=== PATIENT | female | born 1990 | race Caucasian/White ===

== ENCOUNTER 2019-05-14 16:12 | Emergency (ER) | payer OTHER ==
[2019-05-14 16:24] VITALS: BP 138/67
--- NOTE | 2019-05-14 17:23 | ED Physician Documentation ---
History of Present Illness - Stated complaint Stated Complaint: R FOOT PAIN - Chief complaint Chief Complaint: Ext Problem - History obtained from History obtained from: Patient - History of Present Illness Timing: How many days ago (3) - Additonal information Additional information: 28-year-old female is noticed some redness to the dorsum of her right foot about 3 days ago has progressively gotten worse and she is now become concerned as it feels a bit swollen and is tender. She notes blanching to the erythema and she is wearing some tight boots for work. She is supposed to go to work this evening. She has had some problems with these boots being too tight. She has not had fever. Review of Systems Constitutional: denies: Fever Eyes: denies: Decreased vision Ears: denies: Ear pain Nose: denies: Congestion Throat: denies: Sore throat Cardiac: denies: Chest pain / pressure, Palpitations Respiratory: denies: Dyspnea, Cough GI: denies: Nausea, Vomiting Skin: reports: Other (redness and tenderness to the right foot). denies: Rash Musculoskeletal: reports: Extremity pain, Extremity swelling. denies: Neck pain, Back pain Neurologic: denies: Generalized weakness, Focal weakness, Numbness PD PAST MEDICAL HISTORY - Present Medications Home Medications: Ambulatory Orders Medication Instructions Recorded Confirmed Amox/Clav 875/125 [Augmentin] 1 each PO Q12H #14 tablet 05/14/19 - Allergies Allergies/Adverse Reactions: Allergies Allergy/AdvReac Type Severity Reaction Status Date / Time No Known Drug Allergies Allergy Verified 05/14/19 16:24 PD ED PE NORMAL - Vitals Vital signs reviewed: Yes (normal ) - General General: Alert and oriented X 3, No acute distress, Well developed/nourished - HEENT HEENT: Atraumatic, PERRL, EOMI - Respiratory Respiratory: No respiratory distress - Derm Derm: Normal color, Warm and dry, No rash - Extremities Extremities: No deformity, Other (over the dorsum of the rigth foot laterally there is some swelling, erythema and tenderness and there appears to be a blister to the lateral aspect of the right foot distally over the MTP joint. The erythema extends from the toes to the mid foot and there is no lymphangitic streaking. 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 I have asked her to call off work tonight and we will start some antibiotic she is to discontinue the use of the boot she has and the margins of the cellulitis are marked with a surgical marker. Departure - Departure Disposition: Home, Self Care Clinical Impression: Cellulitis Qualifiers: Site of cellulitis: extremity Site of cellulitis of extremity: lower extremity Laterality: right Qualified Code(s): L03.115 - Cellulitis of right lower limb Condition: Stable Instructions: ED Infec Skin Cellulitis Follow-Up: Lise Alaniz MD [Primary Care Provider] - Prescriptions: Amox/Clav 875/125 [Augmentin] 1 each PO Q12H #14 tablet Comments: Today it appears you have cellulitis to the top of your foot related to tight fitting boots. Discontinue the use of the tight fitting boots, reduce your level of activity, use a warm compress 2-3 times per day take the antibiotic as prescribed and if you have increased redness beyond the margins drawn return to the emergency department for further evaluation. Forms: Activity restrictions
== END 2019-05-14 17:31 | disposition home or self-care (01) ==
LOC: ED 16:12
DX: L03.115 Cellulitis of right lower limb (principal)
CPT/HCPCS: 99283

== ENCOUNTER 2019-05-21 05:40 | Day surgery (SDC) | payer OTHER ==
[2019-05-21] MEDS ORDERED: LIDOCAINE-MPF 2% 5 ML VIAL IM ONE (05:41)
[2019-05-21] MEDS ORDERED: LACTATED RINGERS 1,000 ML IV ONE ×2 (06:46→09:23)
--- NOTE | 2019-05-21 07:00 | ANESTHESIA ---
Pre-Anesthesia VS, & Labs - Diagnosis Undesired fertility - Procedure Lap salpingectomy Vital Signs: Temp Pulse Resp BP Pulse Ox 36.5 C 89 16 117/68 98 05/21/19 06:23 05/21/19 06:23 05/21/19 06:23 05/21/19 06:23 05/21/19 06:23 Height 5 ft 1 in Weight (kg) 59.4 kg Body Mass Index 24.5 - Is Patient ?: No Home Medications and Allergies Allergies/Adverse Reactions: Allergies Allergy/AdvReac Type Severity Reaction Status Date / Time morphine AdvReac Intermediate Nausea Verified 05/15/19 15:18 acetaminophen [From Vicodin] AdvReac Nausea Verified 05/15/19 15:18 hydrocodone [From Vicodin] AdvReac Nausea Verified 05/15/19 15:18 Anes History & Medical History - Anesthetic History Anesthesia Complications: reports: No previous complications Family history of Anesthesia Complications: Denies Family history of Malignant Hyperthermia: Denies - Medical History Cardiovascular: reports: None Pulmonary: reports: None Gastrointestinal: reports: None Urinary: reports: None Musculoskeletal: reports: None Endocrine/Autoimmune: reports: None Skin: reports: Other Smoking Status: Never smoker - Surgical History General: Appendectomy Eyes Ears Nose Throat (EENT): Myringotomy (tubes) Gynecologic: LEEP (Cervical surgery) Plan Anesthesia Type: General Consent for Procedure(s) Verified and Reviewed: Yes Code Status: Attempt Resuscitation ASA classification: 2-Mild systemic disease Is this case an emergency?: No
[2019-05-21 07:03] LABS: HCG UR QUAL NEGATIVE
--- NOTE | 2019-05-21 07:03 | ANESTHESIA ---
Pre-Anesthesia VS, & Labs - Diagnosis undesired fertility - Procedure laparoscopic salpingectomy Vital Signs: Temp Pulse Resp BP Pulse Ox 36.5 C 89 16 117/68 98 05/21/19 06:23 05/21/19 06:23 05/21/19 06:23 05/21/19 06:23 05/21/19 06:23 Height 5 ft 1 in Weight (kg) 59.4 kg Body Mass Index 24.5 - NPO >8 hours - Is Patient ?: No - Lab Results Lab results reviewed: Yes Home Medications and Allergies Allergies/Adverse Reactions: Allergies Allergy/AdvReac Type Severity Reaction Status Date / Time morphine AdvReac Intermediate Nausea Verified 05/15/19 15:18 acetaminophen [From Vicodin] AdvReac Nausea Verified 05/15/19 15:18 hydrocodone [From Vicodin] AdvReac Nausea Verified 05/15/19 15:18 Anes History & Medical History - Anesthetic History Anesthesia Complications: reports: No previous complications Family history of Anesthesia Complications: Denies Family history of Malignant Hyperthermia: Denies - Medical History Cardiovascular: reports: None Pulmonary: reports: None Gastrointestinal: reports: None Urinary: reports: None Musculoskeletal: reports: None Endocrine/Autoimmune: reports: None Skin: reports: Other Smoking Status: Never smoker - Surgical History General: Appendectomy Eyes Ears Nose Throat (EENT): Myringotomy (tubes) Gynecologic: LEEP (Cervical surgery) Exam General: Alert (cap), Oriented x3, Cooperative, No acute distress Dental: Other (cap) Mouth Openin Fingerbreadth Neck Mobility: Normal Mallampati classification: II Thyromental Distance: 4-6 cm Respiratory: Lungs clear, Normal breath sounds, No respiratory distress, No accessory muscle use Cardiovascular: Regular rate, Normal S1, Normal S2, No murmurs Plan Anesthesia Type: General Consent for Procedure(s) Verified and Reviewed: No Code Status: Attempt Resuscitation ASA classification: 1-Healthy patient Is this case an emergency?: No
[2019-05-21] MEDS ORDERED: LIDOCAINE MPF 1%-EPI 1:200000 30 ML VIAL ONE (07:19)
[2019-05-21] MEDS ORDERED: BUPIVACAINE 0.5% PF 10 ML VIAL ONE (07:19)
[2019-05-21] MEDS ORDERED: ONDANSETRON 4 MG/2 ML VIAL IVP ONE (08:15)
[2019-05-21] MEDS ORDERED: PROPOFOL 200 MG/20 ML VIAL IVP ONE (08:15)
[2019-05-21] MEDS ORDERED: fentaNYL 100 MCG/2 ML VIAL IVP ONE (08:15)
[2019-05-21] MEDS ORDERED: KETOROLAC 30 MG/ML VIAL IVP ONE (08:15)
[2019-05-21] MEDS ORDERED: ROCURONIUM 50 MG/5 ML VIAL IVP ONE (08:15)
[2019-05-21] MEDS ORDERED: LIDOCAINE 1%-EPI 1:100000 30 ML MDV SUBQ ONE ×2 (08:18)
[2019-05-21] MEDS ORDERED: SILVER NITRATE APPLICATOR TOP ONE ×2 (08:57→08:58)
[2019-05-21] MEDS ORDERED: BACITRACIN OINT TOP ONE (08:57)
[2019-05-21] MEDS ORDERED: BACITRACIN ZINC OINT 15 GM TOP ONE (08:59)
--- NOTE | 2019-05-21 09:14 | OPERATIVE REPORT ---
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 The uterus was of normal size, shape and consistency and anteverted. The adnexa were unremarkable. Operative findings: The uterus was of normal size and shape and anteverted. The tubes and ovaries were normal. There were powder burn lesions of the posterior cul-de-sac. No lesions were seen in either ovarian fossa, or anterior cul-de-sac. The liver edge and gallbladder appeared normal. The appendix was surgically absent. - Other Other Information/Narrative: Procedure: The patient was taken to the operating room, where general endotracheal anesthesia was administered without difficulty. She was then positioned in the low dorsal lithotomy position with her lower extremities in [place] stirrups. Vagina, perineum, and abdomen were then prepped and draped in a sterile fashion, and an in-an-out catheterization was performed. Procedure Time-Out was then performed. A sterile bivalve speculum was then inserted into the vagina. A Hulka tenaculum was placed at the anterior lip of the cervix. The speculum was then removed from the vagina. Attention was then turned to the laparoscopy. 0.5% Marcaine was injected infraumbilically, then a 7-mm horizontal skin incision made. A Verress needle was then inserted through the anterior layers of the abdominal wall with saline drop test suggesting intraperitoneal placement. Carbon dioxide gas insufflation was then performed with appropriate opening pressures noted. Once 2 L of gas was instilled, a 0-degree, 5 mm laparoscope was inserted into a 5 mm trocar and passed through the anterior layers of the abdominal wall using Optiview te chnique. The abdomen was visualized, then 2 additional ports placed at the right and left lower quadrants, first instilling local anesthetic, then placing 5 mm ports. The patient was placed into Trendelenberg and bowel swept out of the cul-de-sac. The right, distal fallopian tube was then grasped and pulled anteriorly and superiorly. The tubo-ovarian ligament was then crossclamped, cauterized, and cut using the PlasmaKinetic, then the mesosalpinx was crossclamped, cauterized, and cut, completely the right fallopian tube from the uterus at the cornual region. The right fallopian tube was then removed from the abdomen. The left distal fallopian tube was then grasped and pulled anteriorly and superiorly. The tubo-ovarian pedicle was then crossclamped, cauterized, and cut, the distal left fallopian tube from the left ovary. The mesosalpinx was then serially cauterized and cut until the cornual region was reached, then the fallopian tube was crossclamped, cauterized and cut. The surgical sites appeared hemostatic. The left fallopian tube was removed from the abdomen. Endometriotic implants in the posterior cul de sac were cauterized using [place] forceps. At this point the laparoscopy was deemed complete, and all trochars were removed from the abdomen. The carbon dioxide gas was then allowed to escape. The incisions were then closed with 4-0 Monocryl in a subcuticular fashion followed by Dermabond skin adhesive. The tenaculum was then removed from the posterior lip of the cervix. The sterile bivalve speculum was then reinserted to ensure that the tenaculum sites were hemostatic. No bleeding was noted, and the speculum was then removed. Attention was returned to the posterior fourchette which was injected with 1cc of 1% lidocaine with epinephrine. The left buttock lesion was also injected with 1cc of 1% lidocaine with epinephrine. Both lesions were sharply excised and sent for pathologic examination. Hemostasis was achieved with AgNO3. Both lesions were dabbed with triple antibiotic ointment. At this point the procedure was deemed complete. The patient was then replaced supine, awakened, extubated, and transferred to the PACU in stable condition.
[2019-05-21] MEDS ORDERED: ONDANSETRON 4 MG/2 ML VIAL ONE (10:06)
[2019-05-21] MEDS ORDERED: oxyCODONE 5 MG TABLET ONE (10:50)
[2019-05-21 10:52] VITALS: BP 104/62
== END 2019-05-21 05:41 | disposition home or self-care (01) ==
LOC: SDS 05:40
PROVIDERS: ATTEND Obstetrics & Gynecology
PROC: 0HBAXZZ Excision of Inguinal Skin, External Approach (ICD-10-PCS; 2019-05-21)
PROC: 0HB8XZZ Excision of Buttock Skin, External Approach (ICD-10-PCS; 2019-05-21)
PROC: 0UT74ZZ Resection of Bilateral Fallopian Tubes, Percutaneous Endoscopic Approach (ICD-10-PCS; principal; 2019-05-21 07:30)
PROC: 0U5F4ZZ Destruction of Cul-de-sac, Percutaneous Endoscopic Approach (ICD-10-PCS; 2019-05-21 07:30)
DX: Z30.2 Encounter for sterilization (principal); A63.0 Anogenital (venereal) warts; N80.3 Endometriosis of pelvic peritoneum; F17.210 Nicotine dependence, cigarettes, uncomplicated
CPT/HCPCS: 11400; 11420; 58661; 58662; 81025; A9270; J7120

== ENCOUNTER 2022-03-05 14:58 | Emergency (ER) | payer OTHER ==
[2022-03-05 15:33] LABS: BASOPHILS % (AUTO) 0.5 %; EOSINOPHILS # (AUTO) 0.1 10^3/uL (0.0-0.7); EOSINOPHILS % (AUTO) 0.9 %; HCT - HEMATOCRIT 40.4 % (37.0-47.0); HGB - HEMOGLOBIN 13.8 g/dL (12.0-16.0); LYMPHOCYTES # (AUTO) 1.8 10^3/uL (1.5-3.5); MEAN CORPUSCULAR HEMOGLOBIN 31.9 pg (27.0-31.0); MEAN CORPUSCULAR HGB CONC 34.2 g/dL (32.0-36.0); MEAN CORPUSCULAR VOLUME 93.5 fL (81.0-99.0); MEAN PLATELET VOLUME 9.4 fL (7.9-10.8); MONOCYTES # (AUTO) 0.4 10^3/uL (0.0-1.0); MONOCYTES % (AUTO) 5.1 %; NEUTROPHILS # (AUTO) 5.3 10^3/uL (1.5-6.6); NEUTROPHILS % (AUTO) 69.2 %; PLT - PLATELET COUNT 249 10^3/uL (130-450); RED BLOOD COUNT 4.32 10^6/uL (4.20-5.40); RED CELL DISTRIBUTION WIDTH 11.7 % (12.0-15.0); WHITE BLOOD COUNT 7.6 x10^3/uL (4.8-10.8)
[2022-03-05 15:41] LABS: BILIRUBIN,URINE NEGATIVE (NEGATIVE); GLUCOSE, URINE (UA) NEGATIVE (NEGATIVE); KETONES,URINE (UA) NEGATIVE (NEGATIVE); LEUKOCYTE ESTERASE, URINE NEGATIVE (NEGATIVE); NITRITE,URINE NEGATIVE (NEGATIVE); OCCULT BLOOD,URINE NEGATIVE (NEGATIVE); PH,URINE 6.5 PH (5.0-7.5); PROTEIN,URINE NEGATIVE (NEGATIVE); UROBILINOGEN,URINE 0.2 (NORMAL) E.U./dL (NORMAL)
--- NOTE | 2022-03-05 15:42 | ED Physician Documentation ---
History of Present Illness - Stated complaint Stated Complaint: ABD PX, DIZZINESS,NAUSEA - Chief complaint Chief Complaint: Abd Pain - Additonal information Additional information: 31-year-old female presents emergency department for evaluation of what she describes as sharp sudden tearing abdominal pain. She did have some associated nausea. She thought that perhaps she may be constipated or needed to pass gas but having a bowel movement and flatulence did not improve her symptoms. She denies a history of constipation. The symptoms have improved though not fully abated. 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 Denies fevers. States that she did have some difficulty with urinating though no dennis dysuria or hematuria. Review of Systems Constitutional: denies: Fever, Chills Nose: reports: Reviewed and negative Throat: reports: Reviewed and negative Cardiac: reports: Reviewed and negative Respiratory: reports: Reviewed and negative GI: reports: Abdominal Pain, Nausea. denies: Vomiting, Constipation, Diarrhea, Hematemesis, Bloody / black stool : reports: Unable to Void Skin: reports: Reviewed and negative Musculoskeletal: reports: Reviewed and negative PD PAST MEDICAL HISTORY - Past Medical History Past Medical History: Yes Cardiovascular: None Respiratory: None Endocrine/Autoimmune: None GI: None : None HEENT: Other Psych: None Musculoskeletal: None Derm: Other - Past Surgical History General: Appendectomy /CHAPLAINCY: LEEP (Cervical surgery) HEENT: Myringotomy (tubes) - Present Medications Home Medications: Ambulatory Orders Medication Instructions Recorded Confirmed Amox/Clav 875/125 [Augmentin] 1 each PO Q12H #14 tablet 05/14/19 05/21/19 - Allergies Allergies/Adverse Reactions: Allergies Allergy/AdvReac Type Severity Reaction Status Date / Time morphine AdvReac Intermediate Emesis Verified 03/05/22 15:10 hydrocodone [From Vicodin] AdvReac Emesis Verified 03/05/22 15:10 - Social History Does the pt smoke?: No Smoking Status: Never smoker PD ED PE NORMAL - General General: Alert and oriented X 3, No acute distress, Well developed/nourished - Neck Neck: Supple, no meningeal sign - Cardiac Cardiac: RRR, No murmur - Respiratory Respiratory: No respiratory distress - Abdomen Abdomen: Normal bowel sounds, Soft. No: Non tender (Mild mid periumbilical tenderness without guarding or rebound. 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 Eye Opening: Spontaneous Motor: Obeys Commands Verbal: Oriented GCS Score: 15 Results - Vitals Vitals: Vital Signs - 24 hr 03/05/22 15:06 Temperature 36.5 C Heart Rate 60 Respiratory 16 Rate Blood Pressure 124/62 O2 Saturation 100 Oxygen O2 Source Room air - Labs Labs: Laboratory Tests 03/05/22 03/05/22 03/05/22 15:28 15:28 15:30 WBC 7.6 RBC 4.32 Hgb 13.8 Hct 40.4 MCV 93.5 MCH 31.9 H MCHC 34.2 RDW 11.7 L Plt Count 249 MPV 9.4 Neut # (Auto) 5.3 Lymph # (Auto) 1.8 [place] # (Auto) 0.4 Eos # (Auto) 0.1 Baso # (Auto) 0.0 Absolute Nucleated RBC 0.00 Nucleated RBC % 0.0 Sodium 136 Potassium 3.4 L Chloride 99 L Carbon Dioxide 26 Anion Gap 11.0 BUN 12 Creatinine 0.7 Estimated GFR (MDRD) 98 Glucose 125 H Calcium 9.8 Total Bilirubin 0.6 AST 16 ALT 11 Alkaline Phosphatase 39 L Total Protein 7.7 Albumin 5.0 Globulin 2.7 Albumin/Globulin Ratio 1.9 Lipase 28 Urine Color YELLOW Urine Clarity CLEAR Urine pH 6.5 Ur Specific [place] 1.020 Urine Protein NEGATIVE Urine Glucose (UA) NEGATIVE Urine Ketones NEGATIVE Urine Occult Blood NEGATIVE Urine Nitrite NEGATIVE Urine Bilirubin NEGATIVE Urine Urobilinogen 0.2 (NORMAL) Ur Leukocyte Esterase NEGATIVE Ur Microscopic Review NOT INDICATED Urine Culture Comments NOT INDICATED Urine HCG, Qual NEGATIVE - Rads (name of study) Abd pelvis Radiology: Final report received (Moderate amount of stool in the colon. 3.2 cm right ovarian cyst) PD MEDICAL DECISION MAKING - ED course Complexity details: reviewed results, re-evaluated patient, considered differential, d/w patient ED course: 31-year-old female presents emergency department for evaluation of sudden onset periumbilical abdominal pain and the need to defecate. However she described a tearing sensation in her abdomen. No dysuria urgency or frequency. Symptoms did not improve despite defecating. Screening labs are essentially unremarkable. CT of the abdomen without acute findings though we do note moderate obstipation of the colon as well as a right ovarian cyst. Patient is improved here in the emergency department following Dilaudid. Discussed routine management of constipation. Emergent return precautions otherwise discussed Departure - Departure Disposition: 01 Home, Self Care Clinical Impression: Ovarian cyst, right Constipation Qualifiers: Constipation type: other constipation type Qualified Code(s): K59.09 - Other constipation Condition: Stable Record reviewed to determine appropriate education?: Yes Instructions: ED Constipation Ch, ED Cyst Ovarian Comments: Jackie you are seen today in the emergency department for sudden severe abdominal pain. The screening labs that we did were essentially normal. I was initially concerned that perhaps you were passing a kidney stone however there was no blood or infection in your urine. CT of your abdomen does show however that you have a moderate amount of stool within your colon. This can definitely be uncomfortable especially with defecation. You also have an incidental finding of a 3.2 cm right ovarian cyst. I recommend that you take some MiraLAX once or twice daily for the next 2 to 3 days until you have 3 or 4 watery bowel movements. After that increase your water intake and bulk your stool with good fibers such as fruit, vegetables or even Metamucil. Follow-up the ovarian cyst with your primary care provider. Cyst that gets excessively large can be painful and do run a risk of torsion or twisting though yours is not nearly to that size. If you develop fevers, have black or bloody stools uncontrolled vomiting severe or different pain please return to the ER for second look
[2022-03-05 15:44] LABS: CLARITY,URINE CLEAR (CLEAR); HCG UR QUAL NEGATIVE
[2022-03-05 15:48] LABS: ALBUMIN/GLOBULIN RATIO 1.9 (1.0-2.2); BILIRUBIN,TOTAL 0.6 mg/dL (0.2-1.0); CALCIUM 9.8 mg/dL (8.5-10.3); CREATININE 0.7 mg/dL (0.4-1.0); POTASSIUM 3.4 mmol/L (3.5-5.0); TOTAL PROTEIN 7.7 g/dL (6.7-8.2)
[2022-03-05] MEDS: KETOROLAC 30 MG/ML VIAL IVP STA (15:55)
[2022-03-05] MEDS ORDERED: IOVERSOL 320 50 ML VIAL ONE (16:04)
[2022-03-05] MEDS: IOVERSOL 320 50 ML VIAL IVP ONE (16:14)
--- NOTE | 2022-03-05 16:50 | CT Report ---
PROCEDURE: Abdomen/Pelvis W INDICATIONS: sharp, tearing mid abdominal pain CONTRAST: IV CONTRAST: Optiray 320 ml: 100 PO CONTRAST: *NO PO CONTRAST TECHNIQUE: After the administration of IV contrast, 5 mm thick sections acquired from the diaphragms to the symp hysis. 5 mm thick coronal and sagittal reformats were acquired. For radiation dose reduction, the f ollowing was used: automated exposure control, adjustment of mA and/or kV according to patient size. COMPARISON: Correlation is made with prior MR spine MRI, 08/07/2020, report only, no images. FINDINGS: Image quality: Excellent. ABDOMEN: Lung bases: Lung bases are clear. Heart size is normal. Solid organs: Liver and spleen are normal in size and enhancement. Gallbladder wall does not appear thickened. Biliary system is non dilated. Pancreas enhances normally. No adrenal nodules. Kidn eys demonstrate normal size and enhancement, without hydronephrosis. Simple appearing right renal cy sts are incidentally noted. Peritoneum and bowel: Bowel loops demonstrate normal wall thickness and caliber. No free fluid or a ir. There is a moderate amount of stool seen within the colon. Appendectomy change is seen. Nodes and vessels: No retroperitoneal or mesenteric adenopathy by size criteria. Aorta and inferior vena cava are normal in size. Miscellaneous: No ventral hernias. PELVIS: Genitourinary: Bladder wall thickness is normal. This patient is status post hysterectomy. Within t he right ovary, there is a 3.2 cm cyst. Miscellaneous: No inguinal hernias or adenopathy. Bones: No suspicious bony lesions. No vertebral body compression fractures. Lower lumbar spine deg enerative changes are again seen. IMPRESSION: There is a moderate amount of stool seen within the colon. Please correlate with clinica l constipation. There is a 3.2 cm right ovarian cyst seen. This is most likely benign, incidental finding in a patien t of this age. If there is strong clinical concern for pelvic pathology in this patient with hysterec ernesto, please consider a dedicated pelvic ultrasound for further evaluation. Prior appendectomy. Reviewed by: Dileep Cohen MD on 03/05/2022 3:48 PM [email or web address] Approved by: Dileep Cohen MD on 03/05/2022 3:48 PM AKDT Station ID: [id number]
[2022-03-05 17:34] VITALS: BP 124/65
== END 2022-03-05 17:36 | disposition home or self-care (01) ==
LOC: ED 14:58
DX: K59.00 Constipation, unspecified (principal); N83.291 Other ovarian cyst, right side
CPT/HCPCS: 36415; 80053; 81001; 81003; 81025; 83690; 85025; 87086; 96374; 99283